=== PATIENT | female | born 1960 | race Caucasian/White ===

== ENCOUNTER 2019-04-22 13:42 | Outpatient (CLI) | payer MEDICARE, SELFPAY ==
--- NOTE | ~2019-04-22 | CT_ITS ---
EXAMINATION: CT abdomen pelvis wo con EXAM DATE: 04/22/2019 14:05 INDICATION: Low back, abdominal pain. Frequent urination. Uterine cancer. Symptoms 5 days. TECHNIQUE: Spiral CT of the abdomen and pelvis was performed without contrast. Axial, coronal and sag ittal images were reviewed. The dose-length product (DLP) for this examination was 225.49 mGy-cm. T he exposure was tailored according to patient size (auto mA exposure control), and iterative reconstr uction (ASIR) was used as additional dose reduction technique. There is no prior study for compariso n. FINDINGS: There is no nephrolithiasis or hydronephrosis. The uterus is not identified and has likel y been surgically resected. The bladder is unremarkable. The liver, spleen, adrenal glands and panc reas are unremarkable. The gallbladder is contracted but otherwise unremarkable. There is no retrop eritoneal or pelvic lymphadenopathy. There is mild scattered arteriosclerotic disease. The appendix is not positively visualized. There is no pericecal inflammatory change to suggest appe ndicitis. The stomach and small bowel are unremarkable. There is moderate amount of colonic stool. No free intraperitoneal gas. The heart is normal in size. There are no pericardial or pleural e ffusions. The lung bases are unremarkable. There are no osteoblastic or osteolytic lesions identifi ed. IMPRESSION: 1. No nephrolithiasis, hydronephrosis or acute intra-abdominal findings. Reviewed, dictated and finalized at location B. ETING PROFESSOR
== END 2019-04-22 13:43 | disposition home or self-care (01) ==
PROVIDERS: PCP Internal Medicine; Visit Provider Nurse Practitioner
DX: R10.9 Unspecified abdominal pain (principal)
CPT/HCPCS: 74176

== ENCOUNTER 2020-10-14 05:18 | Day surgery (SDC) | payer MEDICARE, SELFPAY ==
[2020-10-04 14:12] VITALS: BMI 23.4
--- NOTE | 2020-10-14 09:23 | WPDANESEPPF ---
Anes - Initial Pre Proc Eval Procedure: Operation Date: 10/14/20 13:00 Proposed Procedures p Screening Colonoscopy - Brett Hernandez MD Date/Time: 10/14/20 09:23 Surgeon: Brett Hernandez MD Pre Op Diagnosis: hx of colon ca Patient Data Age: 60 Gender: F Height: 1.6 m Weight: 60 kg Allergies Allergy/AdvReac Type Severity Reaction Status Date / Time aloe vera Allergy Unknown Rash Verified 10/14/20 12:49 No Known Drug Allergies Allergy Unknown Other Unverified 10/14/20 12:49 Home Medications Medication Instructions Recorded Confirmed Type alprazolam 0.25 mg tablet 0.25 mg PO DAILY PRN #30 tablet 07/28/20 10/04/20 Rx cetirizine 10 mg tablet 10 mg PO DAILY PRN 07/28/20 10/14/20 History calcium carbonate-vitamin D2 1 tablet PO DAILY 10/04/20 10/14/20 History [Calcium + Vitamin D] Patient hx anesthesia problems: none Family hx anesthesia problems: none PMFSH Past Medical History Medical History (Updated 07/28/20 @ 09:28 by Boubacar Olivera DO) Anxiety Bronchitis Chicken pox Constipation Depression Diarrhea Elevated TSH History of blood clots 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, drained Lymphedema Pneumonia Sciatica Shingles Skin disorder Tumors Uterine cancer Surgical History Surgical History (Updated 04/20/19 @ 09:50 by Lorin Plata CMA) H/O: hysterectomy Family History Family History (Updated 04/20/19 @ 09:50 by Lorin Plata CMA) Mother Carcinoma of colon Father Meningitis Other Family history of malignant neoplasm of breast Social History Social History (Updated 04/20/19 @ 10:36 by Lorin Plata CMA) Smoking packs per day: 1.5 Smoking cigarettes per day: 30.0 Years smoked: 35 Smoking pack-years: 52.50 Smoking status: Former smoker Tobacco type: cigarettes Smoking end date: 02/26/00 Alcohol intake: current Drinks per week: 5 Alcohol use details: occasioally Substance use type: does not use Living arrangements: with family Spiritual care concerns: No Anes - Eval Final PreProcedure Day of Procedure 10/14/20 09:23 Patient weight: normal Heart: regular rate and rhythm Lungs: clear to auscultation and normal air movement Airway: Mallampati scale Neurological: alert and oriented Last oral intake: >/= 8 hours ASA classification: III Emergent: no Anesthetic plan: proceed Anesthesia type and monitoring: general GIVS Informed Consent: The patient's anesthetic plan and its attendant risks and benefits were discussed with the patient/family/POA. Questions were solicited and answers provided to the satisfaction of the patient/family/POA.
[2020-10-14 12:52] VITALS: BP 116/72; PULSE 88; RESP 16; TEMP 36.2; O2SAT 98; BMI 22.3
[2020-10-14] MEDS: LACTATED RINGERS 1,000 ML 150 ML IV CONT (13:05)
--- NOTE | 2020-10-14 13:25 | PM.HPGS ---
History of Present Illness History of Present Illness Consent: Risks, benefits, and alternatives have been discussed and questions answered. Patient agrees to proceed with procedure. 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, drained Lymphedema Pneumonia Sciatica Shingles Skin disorder Tumors Uterine cancer Surgical History Surgical History H/O: hysterectomy Family History Family History Mother Carcinoma of colon Father Meningitis Other Family history of malignant neoplasm of breast Social History Social History Smoking packs per day: 1.5 Smoking cigarettes per day: 30.0 Years smoked: 35 Smoking pack-years: 52.50 Smoking status: Former smoker Tobacco type: cigarettes Smoking end date: 02/26/00 Alcohol intake: current Drinks per week: 5 Alcohol use details: occasioally Substance use type: does not use Living arrangements: with family Spiritual care concerns: No Meds Home Medications and Allergies Home Medications Medication Instructions Recorded Confirmed Type alprazolam 0.25 mg tablet 0.25 mg PO DAILY PRN #30 tablet 07/28/20 10/04/20 Rx cetirizine 10 mg tablet 10 mg PO DAILY PRN 07/28/20 10/14/20 History calcium carbonate-vitamin D2 1 tablet PO DAILY 10/04/20 10/14/20 History [Calcium + Vitamin D] Allergies Allergy/AdvReac Type Severity Reaction Status Date / Time aloe vera Allergy Unknown Rash Verified 10/14/20 12:57 No Known Drug Allergies Allergy Unknown Other Verified 10/14/20 12:57 Vital Signs Vital Signs - 24 hr 10/14/20 12:52 Temperature 36.2 C L Pulse Rate 88 Respiratory Rate 16 Blood Pressure 116/72 Pulse Oximetry 98 Exam Resp: Auscultation: clear to auscultation bilaterally Cardio: Rate: regular rate Rhythm: regular rhythm GI: GI Palp: Yes Soft to palpation and No Tenderness to palpation present (GI) Assessment and Plan Assessment and plan (1) Family hx of colon cancer requiring screening colonoscopy: Code(s): Z80.0 - Family history of malignant neoplasm of digestive organs Status: Acute Assessment and Plan: Colonoscopy with possible biopsy or polypectomy or cautery or injection of substances.
[2020-10-14 13:58] VITALS: BP 115/75; PULSE 82; RESP 30; O2SAT 99
[2020-10-14 14:08] VITALS: BP 115/77; PULSE 60; RESP 15; O2SAT 99
[2020-10-14 14:18] VITALS: BP 128/87; PULSE 59; RESP 15; O2SAT 100
== END 2020-10-14 14:27 | disposition home or self-care (01) ==
PROVIDERS: PCP Internal Medicine; Visit Provider Internal Medicine Gastroenterology
PROC: 0DJD8ZZ Inspection of Lower Intestinal Tract, Via Natural or Artificial Opening Endoscopic (ICD-10-PCS; CPT 45378; principal; 2020-10-14 13:00)
DX: Z12.11 Encounter for screening for malignant neoplasm of colon (principal); C18.0 Malignant neoplasm of cecum; D12.8 Benign neoplasm of rectum; F41.9 Anxiety disorder, unspecified; F32.9 Major depressive disorder, single episode, unspecified; R94.6 Abnormal results of thyroid function studies; Z80.0 Family history of malignant neoplasm of digestive organs; Z86.718 Personal history of other venous thrombosis and embolism; Z85.42 Personal history of malignant neoplasm of other parts of uterus; Z87.891 Personal history of nicotine dependence; Z90.710 Acquired absence of both cervix and uterus
CPT/HCPCS: 45385; 45380; 88305; 88321; 88342; J2704; J7120

== ENCOUNTER 2020-10-26 15:30 | Outpatient (NON) | payer MEDICARE, SELFPAY | END 2020-10-26 15:31 | disposition home or self-care (01) | LOC: ANHLAB 10-27 09:48 | PROVIDERS: PCP Internal Medicine; Visit Provider Pathology Anatomic Pathology & Clinical Pathology | DX: C53.0 Malignant neoplasm of endocervix (principal) | CPT/HCPCS: 88321 ==

== ENCOUNTER 2021-12-08 13:51 | Outpatient (CLI) | payer MEDICARE, SELFPAY ==
--- NOTE | ~2021-12-08 | XR_ITS ---
EXAMINATION: XR shoulder LT min 2V DATE: 12/08/2021 14:09 INDICATION: Chronic left shoulder pain TECHNIQUE: AP internally and externally rotated, AP oblique externally rotated and transscapular Y vi ews of the left shoulder were obtained. COMPARISON: Left shoulder radiographs dated 04/10/2018 FINDINGS: Normal alignment. No fracture. Mild left glenohumeral and moderate acromioclavicular osteoarthritis. Visualized portions of the lungs are clear. Soft tissues are unremarkable. IMPRESSION: Mild left glenohumeral and moderate acromioclavicular osteoarthritis. Reviewed, dictated and finalized at location B.
== END 2021-12-08 13:52 | disposition home or self-care (01) ==
PROVIDERS: PCP Internal Medicine
DX: M19.012 Primary osteoarthritis, left shoulder (principal)
CPT/HCPCS: 73030